=== PATIENT | female | born 1995 | race Caucasian/White ===

== ENCOUNTER 2018-06-11 12:08 | Day surgery (SDC) | payer MEDICAID ==
[~2018-06-11 12:08] MED LIST: NACL 0.9% 1000 ML 1,000 ML IV SCH
[2018-06-11] MEDS ORDERED: PROVENTIL IH PRN (13:22)
[2018-06-11] MEDS ORDERED: PROVENTIL IH NR (13:30)
[2018-06-11] MEDS ORDERED: DIPRIVAN 10 MG/ML IV ONE ×2 (16:13→16:56)
[2018-06-11] MEDS ORDERED: VERSED ONE (16:13)
[2018-06-11] MEDS ORDERED: WATER FOR IRRIG STERILE ONE (16:27)
--- NOTE | 2018-06-11 16:50 | Operative Report ---
Operative Report Operative Report: Date of procedure: 06/11/2018 Procedure: Colonoscopy with multiple mucosal biopsies. Attending physician: Brian Powell MD Shop [employer] Alteration Tailor: Brian Powell MD Indication: Patient is a 22-year-old female who presents for colonoscopy for to evaluate diarrhea and abdominal pain. A colonoscopy is done to evaluate patient so that treatment may be directed based on the findings. Consent: Informed consent was obtained after advising the patient and family regarding nature of this procedure, its indications, potential benefits as well as possible complications including but not limited to bleeding perforation and adverse reaction to medication, infection as well as other cardiopulmonary complications. An informed written and verbal consent was then obtained after due opportunity was provided for questions and answers. Monitoring: Patient was monitored continuously with pulse oximetry and electrocardiographic recordings as well as blood pressure recordings. Vital signs remained stable throughout this procedure with no untoward events. Preoperative assessment: Patient was assessed immediately prior to this procedure for capacity to tolerate monitored anesthesia care and moderate sedation as well as general anesthesia. Patient's ASA classification is 1, Mallampati class is 2, Hyomental distance is 3. Instrument: [employer] video colonoscope Medications: Propofol given intravenously in divided doses. For details please refer to anesthesia records. Description of procedure: Patient was placed in the left lateral decubitus position after achieving sedation, a digital rectal examination was performed following which the colonoscope was introduced into the anal verge and advanced to the cecum which was identified by the ileocecal valve, the appendiceal orifice, as well as by the cecal strap and direct transillumination. The colonoscope was subsequently withdrawn with careful inspection of all mucosal surfaces. Patient tolerated this procedure well and was subsequently taken to the recovery room. The following findings were noted. Findings: Patient had densely adherent stool all through the colon.The entirety of the colon to the cecum otherwise was normal. On the retroflex view at the anal verge, patient had internal hemorrhoids . Biopsies were obtained from the sigmoid colon for histopathology. Impression: Normal colonoscopy. Internal hemorrhoids. Plan: Follow pathology report ad diretc treatment based on the findings. High-fiber diet.
--- NOTE | 2018-06-11 16:51 | Discharge Summary ---
Short Stay Discharge Plan Activity: advance as tolerated Weight Bearing Status: Weight Bear as Tolerated Diet: regular Follow up with: JOANA HUMPHRIES MD [Primary Care Provider] - 7 Days
[2018-06-11 17:10] VITALS: BP 104/67
--- NOTE | 2018-06-11 17:41 | Anesthesia Day of Surgery ---
Anesthesia Day of Surgery - Day of Surgery Patient Examined: Yes Patient H&P Reviewed: Yes Patient is NPO: Yes
--- NOTE | 2018-06-11 17:42 | Anesthesia Consultation ---
Anesthesia Consult and Med Hx Date of service: 06/11/18 - Airway Anesthetic Teeth Evaluation: Good ROM Head & Neck: Adequate Mental/Hyoid Distance: Adequate Mallampati Class: Class II Intubation Access Assessment: Probably Good - Pre-Operative Health Status ASA Pre-Surgery Classification: ASA2 Proposed Anesthetic Plan: MAC - Pulmonary Hx Asthma: Yes - Hematic Hx Anemia: Yes - Other Systems Hx Substance Use: Yes (MARIJUANA)
== END 2018-06-11 12:09 | disposition home or self-care (01) ==
LOC: GIO 12:08
PROVIDERS: ATTEND Internal Medicine Gastroenterology
DX: K63.89 Other specified diseases of intestine (principal); K64.8 Other hemorrhoids; D64.9 Anemia, unspecified; J45.909 Unspecified asthma, uncomplicated; Z79.899 Other long term (current) drug therapy; Z91.013 Allergy to seafood; Z87.891 Personal history of nicotine dependence; Z88.8 Allergy status to other drugs, medicaments and biological substances
CPT/HCPCS: 45380; 81025; 88305; J2250; J2704; J7030

== ENCOUNTER 2021-09-26 08:26 | Emergency (ER) | payer MEDICAID ==
[2021-09-26 10:09] LABS: Hemoglobin 14.9 gm/dl (10.1-14.3); Mean Platelet Volume 9.1 fl (6-12); Red Blood Count 4.74 M/mm3 (3.65-5.03); Red Cell Distribution Width 13.7 % (13.2-15.2)
[2021-09-26 11:11] LABS: Alanine Aminotransferase 6 units/L (7-56); Albumin 4.5 g/dL (3.9-5); BUN/Creatinine Ratio 9; Blood Urea Nitrogen 7 mg/dL (7-17); Calcium 9.3 mg/dL (8.4-10.2); Hemolysis Index 4
[2021-09-26 11:30] LABS: Mucus,Urine 3+ /HPF
[2021-09-26 11:32] LABS: Color,Urine Dark Yellow (Yellow)
--- NOTE | 2021-09-26 11:40 | Emergency Department Report ---
ED General Adult HPI - General Chief complaint: Nausea/Vomiting/Diarrhea Stated complaint: CHEST PAIN/LT ARM PAIN/HEADACHE Time Seen by Provider: 09/26/21 09:39 Source: patient Mode of arrival: Ambulatory Limitations: No Limitations - History of Present Illness Initial comments: 25 YO COMES TO ER WITH 2 W HX OF N/V. LMP 2 WEEKS AGO. ALSO CO HEADACHE AND CP TO [place]. HAS CHRONIC PAIN BUT HAS NOT SEEN PAIN MD IN [place]- USED TO BE ON NARCOTICS. AMBULATORY AND NON ILL APPEARING -: Gradual, week(s) Severity scale (0 -10): 8 Consistency: intermittent Improves with: none Worsens with: none Associated Symptoms: denies other symptoms, chest pain, nausea/vomiting. denies: confusion, cough, diaphoresis, fever/chills, headaches, loss of appetite, malaise, rash, seizure, shortness of breath, syncope, weakness Treatments Prior to Arrival: none - Related Data Previous Rx's Medication Instructions Recorded Last Taken Type Acetaminophen [Acetaminophen 8 650 mg PO Q8H PRN #25 tablet.er 09/26/21 Unknown Rx Hour] Albuterol Mdi (or & Nicu Only) 2 puff IH QID PRN #1 inhalation 09/26/21 Unknown Rx [ProAir HFA Inhaler] Fluconazole [Diflucan TAB] 100 mg PO QDAY #2 tablet 09/26/21 Unknown Rx Ondansetron [Zofran Odt] 4 mg PO Q8HR PRN #10 tab.rapdis 09/26/21 Unknown Rx Sulfamethoxazole/Trimethoprim 1 each PO BID #10 tablet 09/26/21 Unknown Rx [Bactrim DS TAB] predniSONE [Deltasone] 20 mg PO DAILY #5 tablet 09/26/21 Unknown Rx Allergies Allergy/AdvReac Type Severity Reaction Status Date / Time fexofenadine Allergy Intermediate Unknown Verified 06/10/18 16:35 shellfish derived Allergy Intermediate Unknown Verified 06/10/18 16:35 ibuprofen AdvReac Vomiting Verified 09/26/21 08:30 ED Review of Systems ROS: Stated complaint: CHEST PAIN/LT ARM PAIN/HEADACHE Other details as noted in HPI Comment: All other systems reviewed and negative ED Past Medical Hx - Past Medical History Previous Medical History?: Yes Hx Asthma: Yes Additional medical history: COMPLEX REGIONAL SYNDROME, MIGRAINES - Surgical History Past Surgical History?: No - Family History Family history: no significant - Social History Smoking Status: Current Every Day Smoker Substance Use Type: Alcohol - Medications Home Medications: Home Medications Medication Instructions Recorded Confirmed Last Taken Type Acetaminophen [Acetaminophen 8 650 mg PO Q8H PRN #25 tablet.er 09/26/21 Unknown Rx Hour] Albuterol Mdi (or & Nicu Only) 2 puff IH QID PRN #1 inhalation 09/26/21 Unknown Rx [ProAir HFA Inhaler] Fluconazole [Diflucan TAB] 100 mg PO QDAY #2 tablet 09/26/21 Unknown Rx Ondansetron [Zofran Odt] 4 mg PO Q8HR PRN #10 tab.rapdis 09/26/21 Unknown Rx Sulfamethoxazole/Trimethoprim 1 each PO BID #10 tablet 09/26/21 Unknown Rx [Bactrim DS TAB] predniSONE [Deltasone] 20 mg PO DAILY #5 tablet 09/26/21 Unknown Rx ED Physical Exam - General Limitations: No Limitations General appearance: alert, in no apparent distress - Head Head exam: Present: atraumatic, normocephalic - Eye Eye exam: Present: normal appearance - ENT ENT exam: Present: mucous membranes moist - Neck Neck exam: Present: normal inspection - Respiratory Respiratory exam: Present: normal lung sounds bilaterally. Absent: respiratory distress - Cardiovascular Cardiovascular Exam: Present: regular rate, normal rhythm. Absent: systolic murmur, diastolic murmur, rubs, gallop - GI/Abdominal GI/Abdominal exam: Present: soft, normal bowel sounds - Extremities Exam Extremities exam: Present: normal inspection - Back Exam Back exam: Present: normal inspection - Neurological Exam Neurological exam: Present: alert, oriented X3 - Psychiatric Psychiatric exam: Present: normal affect, normal mood - Skin Skin exam: Present: warm, dry, intact, normal color. Absent: rash ED Course Vital Signs 09/26/21 09/26/21 08:32 13:12 Temperature 98.7 F Pulse Rate 99 H Pulse Rate [ 99 H Bilateral] Respiratory 20 Rate Respiratory 20 Rate [Bilateral ] Blood Pressure 119/78 [Right] O2 Sat by Pulse 97 Oximetry ED Medical Decision Making - Lab Data Result diagrams: 09/26/21 09:01 09/26/21 09:01 - EKG Data -: EKG Interpreted by Ms EKG shows normal: sinus rhythm Rate: normal - EKG Data When compared to previous EKG there are: no significant change Interpretation: no acute changes - Medical Decision Making Vital Signs 09/26/21 08:32 Temperature 98.7 F Pulse Rate 99 H Respiratory 20 Rate Blood Pressure 119/78 [Right] O2 Sat by Pulse 97 Oximetry Labs 09/26/21 09/26/21 09/26/21 09:01 09:01 09:01 WBC 7.3 RBC 4.74 Hgb 14.9 H Hct 46.0 H MCV 97 MCH 31 MCHC 32 RDW 13.7 Plt Count 260 Sodium 139 Potassium 3.7 Chloride 104.4 Carbon Dioxide 22 Anion Gap 16 BUN 7 Creatinine 0.8 Estimated GFR > 60 BUN/Creatinine Ratio 9 Glucose 89 Calcium 9.3 Total Bilirubin 0.90 AST 11 ALT 6 L Alkaline Phosphatase 46 Total Protein 6.8 Albumin 4.5 Albumin/Globulin Ratio 2.0 Lipase 13 HCG, Quant < 2 Urine Color Urine Turbidity Specific [place] (Man) Ur Protein (Man) Ur Ketones (Man) Urine Bilirubin (Man) Urine WBC (Auto) Urine RBC (Auto) U Epithel Cells (Auto) Urine RBC (Manual) Urine Mucus Urine Yeast (Budding) 09/26/21 Unknown WBC RBC Hgb Hct MCV MCH MCHC RDW Plt Count Sodium Potassium Chloride Carbon Dioxide Anion Gap BUN Creatinine Estimated GFR BUN/Creatinine Ratio Glucose Calcium Total Bilirubin AST ALT Alkaline Phosphatase Total Protein Albumin Albumin/Globulin Ratio Lipase HCG, Quant Urine Color Dark yellow Urine Turbidity Clear Specific [place] (Man) 1.030 Ur Protein (Man) 1+ Ur Ketones (Man) 4+ Urine Bilirubin (Man) Negative Urine WBC (Auto) 1.0 Urine RBC (Auto) 2.0 U Epithel Cells (Auto) 3.0 Urine RBC (Manual) 1+ Urine Mucus 3+ Urine Yeast (Budding) Few KETONES PLUS 4 IN UA 1L NS DECADRON FOR PAIN ZOSFAN FOR NAUSEA ROCEPHIN 1 GM FOR [place] IN URINE PARTIALLY RESULTED UA CULTURE ORDERED LABS NOTED PREG NEG 1300 EACH TIME I SEE PT SHE HAS NEW COMPLAINTS CO SOB FROM HER ASTHMA NO WHEEZING ON EXAM DUONEB MALE FRIEND REMAINS AT BEDSIDE REQUESTING REFILL ALBUTEROL NEB AND PAIN MEDS SHE IS ALLERGIC TO MOTRIN; TYLENOL DONT MAKE HER FEEL TO GOOD I TOLD HER WE WOULD NOT GIVE HER NARCOTICS DC HOME WITH DC PLAN OF CARE INCLUDING DIET, MEDS, ACTIVITY AND FOLLOW UP. PT AMBULATORY AND TAKING PO ON DC - Differential Diagnosis RO UTI/CHOLEY/PREG Critical care attestation.: If time is entered above; I have spent that time in minutes in the direct care of this critically ill patient, excluding procedure time. ED Disposition Clinical Impression: Chronic pain syndrome UTI (urinary tract infection) Qualifiers: Urinary tract infection type: site unspecified Hematuria presence: without hematuria Qualified Code(s): N39.0 - Urinary tract infection, site not specified Nausea & vomiting Qualifiers: Vomiting type: unspecified Qualified Code(s): R11.2 - Nausea with vomiting, unspecified Asthma with acute exacerbation Qualifiers: Asthma persistence: unspecified Disposition: HOME / SELF CARE / HOMELESS Is pt being admited?: No Does the pt Need Aspirin: No Condition: Stable Instructions: Nausea and Vomiting, Adult, [id number], Chronic Pain, Adult Additional Instructions: STAY WELL HYDRATED WITH WATER MEDS ORDERED TODAY FOLLOW UP WITH PCP REFERRAL BELOW DIET AND ACTIVITY TOLERATED Prescriptions: Acetaminophen [Acetaminophen 8 Hour] 650 mg PO Q8H PRN #25 tablet.er PRN Reason: Pain , Severe (7-10) Sulfamethoxazole/Trimethoprim [Bactrim DS TAB] 1 each PO BID #10 tablet predniSONE [Deltasone] 20 mg PO DAILY #5 tablet Fluconazole [Diflucan TAB] 100 mg PO QDAY #2 tablet Albuterol Mdi (or & Nicu Only) [ProAir HFA Inhaler] 2 puff IH QID PRN #1 inhalation PRN Reason: Shortness Of Breath Ondansetron [Zofran Odt] 4 mg PO Q8HR PRN #10 tab.rapdis PRN Reason: Vomiting Referrals: JOANA HUMPHRIES MD [Primary Care Provider] - 3-5 Days Forms: Work/School Release Form(ED) Time of Disposition: 12:42
[2021-09-26] MEDS ORDERED: ONDANSETRON 4 MG ODT TAB PO ONE (11:44)
[2021-09-26] MEDS ORDERED: SODIUM CHLORIDE 0.9% 1000 ML 1,000 ML IV ONE (11:46)
[2021-09-26] MEDS ORDERED: ONDANSETRON 4 MG/2 ML INJ IV ONE (11:46)
[2021-09-26] MEDS ORDERED: dexAMETHasone 4 MG/ML VIAL IV ONE (11:46)
[2021-09-26] MEDS ORDERED: cefTRIAXone/NS 1 GM/50 ML 1 GM/50 ML BAG IV ONE (11:47)
[2021-09-26] MEDS ORDERED: IPRATROPIUM/ALBUTEROL SULFATE 3 ML AMPUL.NEB IH ONE (12:53)
[2021-09-26 16:31] VITALS: BP 151/78
--- NOTE | 2021-09-27 10:17 | Electrocardiograph Report ---
[facility] Test Date: 2021-09-26 Test Time: 08:38:40 Pat Name: TATA MAE Department: Room: Gender: F Water Manager: MOISÉS : 1995 Requested By: WILMA BASS Order Number: [id number] Reading MD: Dawson Wood Measurements Intervals [place] Rate: 73 P: 43 MO: 143 QRS: 63 QRSD: 74 T: 30 QT: 365 QTc: 402 Interpretive Statements Sinus rhythm No previous ECG available for comparison Electronically Signed On 09-27-2021 10:17:43 EDT by Dawson Wood
== END 2021-09-26 16:30 | disposition home or self-care (01) ==
LOC: ED 08:26
DX: N39.0 Urinary tract infection, site not specified (principal); R11.2 Nausea with vomiting, unspecified; G89.4 Chronic pain syndrome; J45.909 Unspecified asthma, uncomplicated; Z91.013 Allergy to seafood; Z79.899 Other long term (current) drug therapy
CPT/HCPCS: 36415; 80053; 81001; 83690; 84702; 85027; 87086; 93005; 94640; 96365; 96375; 99283; J0696; J1100; J2405; J7030; 94644